=== PATIENT | female | born 1980 | race Caucasian/White ===

== ENCOUNTER → 2016-06-09 | Outpatient (CLI) | payer BC ==
--- NOTE | 2016-06-09 09:21 | US ---
EXAMINATION TYPE: US thyroid st tissue head/neck DATE OF EXAM: 06/09/2016 9:05 AM COMPARISON: NONE CLINICAL HISTORY: R22.1 Swelling Mass in Neck, R13.10 Dysphagia. Feels mass or fullness in throat GLAND SIZE: Right Lobe: 4.5 x 1.9 x 1.4cm Overall Parenchyma: homogenous Left Lobe: 4.2 x 1.8 x 1.2 cm Overall Parenchyma: homogeneous Isthmus Thickness: 0.3 cm NODULES RIGHT: # of nodules measured on right: 1 1. 0.4 X 0.3 x 0.2 cm hypoechoic mixed nodule at the upper pole with well-defined margins. This nod ule is wider than tall and shows no intranodular vascularity. No prior US here LEFT: # of nodules measured on left: 1 1. 0.4 X 0.3 x 0.3 cm hypoechoic mixed nodule at the mid pole with well-defined margins. This nodul e is wide as is tall and shows no intranodular vascularity. ISTHMUS: # of nodules measured in the isthmus: 0 TECHNOLOGIST IMPRESSION: Bilateral neck scanned, no abnormal lymphadenopathy noted. Thyroid gland is normal in size with single small colloid nodules marked in both thyroid lobes. IMPRESSION: Thyroid gland is normal in size, no suspicious greater than 1 cm solid or cystic nodules are evident.
--- NOTE | 2016-06-09 09:44 | FL ---
EXAMINATION TYPE: FL barium swallow DATE OF EXAM: 06/09/2016 9:34 AM CLINICAL HISTORY: Swelling, mass in neck, dysphasia. TECHNIQUE: A double contrast esophagram is performed utilizing air and barium. A total of 36 second s of fluoroscopic time was utilized during procedure. COMPARISON: None FINDINGS: The esophagus shows normal motility and emptying into the stomach. No evidence of hiatal h ernia or stricture noted. No suspicious intraluminal mass or diverticulum is identified with particul ar attention to the upper cervical esophagus at area of patient concern. No significant gastroesophag eal reflux was seen during real time performance of this study. IMPRESSION: No significant abnormality is seen to account for patient's symptoms.
== END | disposition home or self-care (01) ==
LOC: RADUSWWP 08:34
PROVIDERS: ATTEND Otolaryngology
DX: R13.10 Dysphagia, unspecified (principal); R94.6 Abnormal results of thyroid function studies
CPT/HCPCS: 36415; 74220; 76536; 84443; 86376